=== PATIENT | male | born 1995 | race Caucasian/White ===

== ENCOUNTER 2017-01-01 12:09 | Outpatient (CLI) | payer OTHER ==
[2017-01-01 17:50] LABS: HBCM Index 0.13 S/CO (0-0.79); HBSAg Index 0.25 S/CO (0-0.99); HIV (1/2) Antibody/Antigen Non-Reactive (NonReactive); HIV 1/2 INDEX 0.41 S/CO (<1.00); Hep A IgM AB Non-Reactive (NonReactive); Hep A IgM S/CO 0.23 S/CO (0-0.79); Hep B Surf Ag Non-Reactive S/CO (NonReactive); Hep C IgG Ab Non-Reactive (NonReactive); Hep C Index 0.17 S/CO (0-0.79); Hepatitis B Core IGM Abs Non-Reactive (NonReactive)
== END 2017-01-01 12:10 | disposition home or self-care (01) ==
LOC: HPCALD 12:09
PROVIDERS: ATTEND Family Medicine
DX: Z11.3 Encounter for screening for infections with a predominantly sexual mode of transmission (principal)
CPT/HCPCS: 36415; 80074; 86592; 87389; 87491; 87591

== ENCOUNTER 2017-02-21 07:48 | Emergency (ER) | payer OTHER ==
[2017-02-21] MEDS ORDERED: Ketorolac Tromethamine 30 MG/ML VIAL ONE (08:12)
== END 2017-02-21 08:33 | disposition home or self-care (01) ==
LOC: BURERS 07:48
DX: S06.0X0A Concussion without loss of consciousness, initial encounter (principal); S00.83XA Contusion of other part of head, initial encounter; F17.210 Nicotine dependence, cigarettes, uncomplicated; W50.0XXA Accidental hit or strike by another person, initial encounter
CPT/HCPCS: 96372; J1885

== ENCOUNTER 2017-03-15 09:23 | Emergency (ER) | payer OTHER | END 2017-03-15 09:47 | disposition home or self-care (01) | LOC: BURERS 09:23 | DX: K02.9 Dental caries, unspecified (principal); F17.290 Nicotine dependence, other tobacco product, uncomplicated | CPT/HCPCS: 99282 ==

== ENCOUNTER 2017-09-01 23:44 | Emergency (ER) | payer OTHER | END 2017-09-02 00:23 | disposition home or self-care (01) | LOC: BURERS 23:44 | DX: G40.909 Epilepsy, unspecified, not intractable, without status epilepticus (principal); F17.290 Nicotine dependence, other tobacco product, uncomplicated; Z79.899 Other long term (current) drug therapy | CPT/HCPCS: 99284 ==

== ENCOUNTER 2018-01-24 07:09 | Emergency (ER) | payer OTHER | END 2018-01-24 07:34 | disposition home or self-care (01) | LOC: BURERS 07:09 | DX: K04.7 Periapical abscess without sinus (principal); F17.290 Nicotine dependence, other tobacco product, uncomplicated | CPT/HCPCS: 99282 ==